=== PATIENT | male | born 1985 | race Caucasian/White ===

== ENCOUNTER 2019-04-20 18:54 | Emergency (ER) | payer OTHER ==
[~2019-04-20] VITALS: Ht 172.7 cm; Wt 90.7 kg
== END 2019-04-20 20:37 | disposition home or self-care (01) ==
LOC: ED 18:54
DX: S93.401A Sprain of unspecified ligament of right ankle, initial encounter (principal); X50.9XXA Other and unspecified overexertion or strenuous movements or postures, initial encounter; F17.200 Nicotine dependence, unspecified, uncomplicated
CPT/HCPCS: 73610; 99283

== ENCOUNTER 2022-01-12 15:40 | Emergency (ER) | payer OTHER ==
[~2022-01-12] VITALS: Ht 172.7 cm; Wt 90.7 kg
[2022-01-12] MEDS ORDERED: HYDROCODON-ACE1 EA10 PO (16:37)
== END 2022-01-12 17:01 | disposition home or self-care (01) ==
LOC: ED 15:40
DX: S42.024A Nondisplaced fracture of shaft of right clavicle, initial encounter for closed fracture (principal); F17.200 Nicotine dependence, unspecified, uncomplicated; Y93.29 Activity, other involving ice and snow
CPT/HCPCS: 73000; 99283-25